=== PATIENT | male | born 1970 | race African-American/Black ===

== ENCOUNTER 2023-10-05 11:57 | Outpatient (CLI) | payer MEDICARE, MEDICAID | END 2023-10-05 11:58 | disposition home or self-care (01) | LOC: SJX 11:57 | PROVIDERS: ATTEND Internal Medicine Nephrology | DX: N18.30 Chronic kidney disease, stage 3 unspecified (principal) | CPT/HCPCS: 76770 ==

== ENCOUNTER 2023-10-14 00:33 | Emergency (ER) | payer MEDICARE, MEDICAID ==
[2023-10-14] MEDS ORDERED: Benzocaine 20% Spray 60 ML CAN ONE (01:13)
[2023-10-14] MEDS ORDERED: Amoxicillin/Potassium Clav 875 MG TAB ONE (01:13)
[2023-10-14] MEDS ORDERED: Acetaminophen 325 MG TAB ONE (01:13)
[2023-10-14] MEDS ORDERED: Ketorolac Tromethamine 30 MG (1 mL) VIAL ONE (01:19)
[2023-10-14] MEDS ORDERED: HYDROcodone/Acetaminophen 5/325 mg Tablet ONE (01:20)
== END 2023-10-14 03:26 | disposition home or self-care (01) ==
LOC: ERS 00:33
DX: K04.7 Periapical abscess without sinus (principal); I12.9 Hypertensive chronic kidney disease with stage 1 through stage 4 chronic kidney disease, or unspecified chronic kidney disease; E11.22 Type 2 diabetes mellitus with diabetic chronic kidney disease; N18.9 Chronic kidney disease, unspecified; F17.210 Nicotine dependence, cigarettes, uncomplicated
CPT/HCPCS: 96372; 99282; J1885

== ENCOUNTER 2025-05-10 15:09 | Emergency (ER) | payer OTHER ==
[2025-05-10] MEDS ORDERED: Furosemide 40 MG (4 mL) VIAL ONE (16:12)
[2025-05-10] MEDS ORDERED: Dexamethasone 10 MG/ML VIAL ONE (16:12)
[2025-05-10 17:02] LABS: #Basophils Less than 0.03 10x3/uL (0.0-0.2); #Eosinophils 0.12 10x3/uL (0.0-0.7); #Monocytes 0.43 10x3/uL (0.11-0.59); #Neutrophils 5.19 10x3/uL (1.40-6.50); %Basophils 0.3 % (0.0-1.0); %Eosinophils 1.8 % (0.0-10.0); %Lymphocytes 14.6 % (21.0-51.0); %Monocytes 6.4 % (0.0-10.0); %Neutrophils 76.6 % (42.0-75.0); Hematocrit 30.3 % (42.0-52.0); Hemoglobin 9.9 g/dL (14.0-18.0); Mean Corpuscular Hemoglobin 27.4 pg (27.0-31.0); Mean Corpuscular Volume 83.9 fL (78.0-98.0); Platelet Count 211 10x3/uL (130-400); Red Blood Cell (RBC) Count 3.61 mill/uL (4.70-6.10); White Blood Cell (WBC) Count 6.77 10x3/uL (4.8-10.8)
[2025-05-10 17:10] LABS: ALT (SGPT) 14 U/L (Less than 45); AST (SGOT) 20 U/L (11-34); Albumin 3.4 g/dL (3.1-4.5); Alkaline Phosphatase 84 U/L (40-110); Anion Gap 12 mmol/L (10-20); BUN (Urea Nitrogen) 32 mg/dL (8.4-25.7); Bilirubin, Total 0.2 mg/dL (0.3-1.2); Calc. Creatinine Clearance 0 mL/min (70-130); Calcium 8.9 mg/dL (7.8-10.44); Carbon Dioxide 26 mmol/L (22-29); Chloride 103 mmol/L (98-107); Globulin 3.8 g/dL (2.4-3.5); Glucose 306 mg/dL (70-105); Potassium 3.9 mmol/L (3.5-5.1); Sodium 137 mmol/L (136-145)
== END 2025-05-10 17:40 | disposition home or self-care (01) ==
LOC: ERS 15:09
DX: R05.9 Cough, unspecified (principal); R06.2 Wheezing; R06.02 Shortness of breath; E11.22 Type 2 diabetes mellitus with diabetic chronic kidney disease; N18.9 Chronic kidney disease, unspecified; I12.9 Hypertensive chronic kidney disease with stage 1 through stage 4 chronic kidney disease, or unspecified chronic kidney disease
CPT/HCPCS: 71045; 80053; 83880; 84484; 85025; 85379; 87428; 93005; J1100; J1940; 96374; 96375